=== PATIENT | male | born 1990 | race Caucasian/White ===

== ENCOUNTER 2017-02-27 09:30 | Emergency (ER) | payer MEDICAID ==
[~2017-02-27] VITALS: Ht 177.8 cm; Wt 79.0 kg
[2017-02-27] MEDS ORDERED: ALBUTEROL (0.083%) 2.5MG/3ML NEB HHN STA (10:22)
[2017-02-27] MEDS ORDERED: PREDNISONE 20MG TABLET PO STA (10:22)
[2017-02-27] MEDS ORDERED: ALBUTEROL (0.083%) 2.5MG/3ML NEB ONE (10:37)
[2017-02-27 11:48] VITALS: BP 138/77
== END 2017-02-27 11:57 | disposition home or self-care (01) ==
LOC: ER 10:39
DX: J20.9 Acute bronchitis, unspecified (principal); Z88.0 Allergy status to penicillin
CPT/HCPCS: 71010; 94640; 99283; J7611; Z7610